=== PATIENT | male | born 1960 | race Caucasian/White ===

== ENCOUNTER 2025-10-16 13:45 | Emergency (ER) | payer BC ==
[~2025-10-16] VITALS: Ht 170.2 cm; Wt 92.1 kg
[2025-10-16 15:16] LABS: PLATELET COUNT (AUTO) 145 K/uL (150-450); RED BLOOD CELL COUNT(AUTO) 5.48 MIL/uL (4.5-6.0); RED CELL DISTRIBUTION WIDTH 13.7 % (11.5-15.0); WHITE BLOOD COUNT (AUTO) 8.5 K/uL (4.3-11.0)
[2025-10-16 15:25] LABS: CALCIUM, SERUM 8.4 mg/dL (8.5-10.1); CREATININE 1.2 mg/dL (0.6-1.3); SODIUM SERUM 143.0 mmol/L (136-145); UREA NITROGEN, BLOOD 19.0 mg/dL (7-18)
[2025-10-16] MEDS: IV NS 0.9% 1,000 ML BAG IV ONE (16:02)
[2025-10-16 18:15] VITALS: BP 135/81; TEMP 98.4; O2SAT 98
== END 2025-10-16 18:16 | disposition home or self-care (01) ==
LOC: ER 13:51
DX: R00.0 Tachycardia, unspecified (principal); R42 Dizziness and giddiness; R51.9 Headache, unspecified; I10 Essential (primary) hypertension; I44.7 Left bundle-branch block, unspecified; Z95.2 Presence of prosthetic heart valve
CPT/HCPCS: 99285; 96360; 71045; 93005; 85025; 80048; 83735; 36415; 84484 ×2; J7030